=== PATIENT | female | born 1950 | race Caucasian/White ===

== ENCOUNTER 2021-05-15 16:00 | Inpatient (IN) | payer OTHER ==
[~2021-05-15] VITALS: Ht 165.1 cm; Wt 97.1 kg
[2021-05-15 17:04] LABS: HEMOGLOBIN 7.8 gm/dl (12.3-15.3); RED BLOOD COUNT 3.48 M/UL (4.00-5.10); WHITE BLOOD COUNT 6.4 K/UL (4.5-11.0)
[2021-05-15] MEDS ORDERED: LEVOTHYROXINE50 MCG PO (18:10)
[2021-05-15] MEDS ORDERED: GABAPENTIN600 MG PO (18:12)
[2021-05-15] MEDS ORDERED: ALPRAZOLAM1 MG PO (18:12)
[2021-05-15] MEDS ORDERED: OXYCODONE-ACET1 EACH PO (18:12)
[2021-05-15] MEDS ORDERED: CITALOPRAM HBR10 MG PO (18:13)
[2021-05-16 03:56] LABS: HEMOGLOBIN 7.4 gm/dl (12.3-15.3); RED BLOOD COUNT 3.35 M/UL (4.00-5.10); WHITE BLOOD COUNT 5.1 K/UL (4.5-11.0)
[2021-05-16 04:32] LABS: BUN/CREATININE RATIO 17 (0-10)
[2021-05-17 07:20] LABS: HEMOGLOBIN 7.4 gm/dl (12.3-15.3); RED BLOOD COUNT 3.43 M/UL (4.00-5.10)
[2021-05-17 07:21] LABS: WHITE BLOOD COUNT 7.7 K/UL (4.5-11.0)
[2021-05-17 11:07] LABS: BUN/CREATININE RATIO 13 (0-10)
[2021-05-18 05:46] LABS: HEMOGLOBIN 8.3 gm/dl (12.3-15.3); RED BLOOD COUNT 3.69 M/UL (4.00-5.10); WHITE BLOOD COUNT 7.4 K/UL (4.5-11.0)
[2021-05-18 06:46] LABS: BUN/CREATININE RATIO 14 (0-10)
[2021-05-19 05:31] LABS: HEMOGLOBIN 7.9 gm/dl (12.3-15.3); RED BLOOD COUNT 3.54 M/UL (4.00-5.10)
[2021-05-19 05:34] LABS: WHITE BLOOD COUNT 4.3 K/UL (4.5-11.0)
[2021-05-19 06:31] LABS: BUN/CREATININE RATIO 12 (0-10)
[2021-05-19] MEDS ORDERED: AUGMENTIN 875-1 EACH PO (16:33)
[2021-05-19] MEDS ORDERED: ELIQUIS5 MG PO (16:33)
== END 2021-05-19 18:15 | disposition left against medical advice (07) | DRG 177 ==
LOC: M/S 16:00 → PROG CARE 16:00 → M/S 05-16 11:11
PROVIDERS: ADMIT Internal Medicine Infectious Disease
PROC: 8E0ZXY6 Isolation (ICD-10-PCS; principal; 2021-05-15)
PROC: XW033E5 Introduction of Remdesivir Anti-infective into Peripheral Vein, Percutaneous Approach, New Technology Group 5 (ICD-10-PCS; 2021-05-17)
DX: U07.1 COVID-19 (principal); G92.8 Other toxic encephalopathy; C56.9 Malignant neoplasm of unspecified ovary; G62.9 Polyneuropathy, unspecified; F41.9 Anxiety disorder, unspecified; M19.90 Unspecified osteoarthritis, unspecified site; E03.9 Hypothyroidism, unspecified; D64.9 Anemia, unspecified; T50.995A Adverse effect of other drugs, medicaments and biological substances, initial encounter; Z86.711 Personal history of pulmonary embolism; Z79.01 Long term (current) use of anticoagulants; Z90.49 Acquired absence of other specified parts of digestive tract; Z93.3 Colostomy status
CPT/HCPCS: 36415; 71045; 80053; 81001; 82728; 83735; 84443; 85025; 86140; 87040; 87077; 87081; 87086; 87186; 94640; 94760; 97110; 97110-GP-CQ; 97116-GP-CQ; 97161; 97166; 97530; J0692; J1650; J7030